=== PATIENT | male | born 1960 | race Caucasian/White ===

== ENCOUNTER 2019-08-27 14:58 | Emergency (ER) | payer BC, SELFPAY ==
--- NOTE | ~2019-08-27 | XR_ITS ---
EXAMINATION: XR chest 2V DATE: 08/27/2019 17:47 INDICATION: Palpitations. Hypertension. TECHNIQUE: PA and lateral views of the chest were obtained. COMPARISON: Chest radiograph dated 01/24/15 FINDINGS: Opacities primarily streaky at the bilateral lower lung zones and favor atelectasis over pneumonia. N o pulmonary edema, pleural effusion or pneumothorax. The cardiomediastinal silhouette is normal. Mild thoracic spondylosis. IMPRESSION: 1. Mild bibasilar atelectasis versus less likely pneumonia. Reviewed, dictated and finalized at location A. NT ADVOCATE
--- NOTE | ~2019-08-27 | CT_ITS ---
EXAMINATION: CT brain wo con DATE: 08/27/2019 19:35 INDICATION: Headache. Hypertension. TECHNIQUE: Computed tomography (CT) of the head was performed without intravenous contrast. Sagittal and coronal reconstructions were performed. The mA was adjusted according to patient size. Iterative reconstruction technique was employed. The dose-length product was 681.00 mGy-cm. COMPARISON: 11/11/2018 FINDINGS: No acute intracranial hemorrhage, acute infarction or abnormal extra axial fluid collection. Very mil d scattered white matter hypoattenuation consistent with chronic small vessel ischemic disease. Ventr icles are normal and symmetric. No mass/mass effect. Mucosal thickening in the bilateral ethmoid sinu ses and right sphenoid sinus. More prominent moderate mucosal thickening in the left maxillary sinus. The cephalad aspect of the right maxillary sinus is completely opacified. The orbits and mastoid air cells are normal. IMPRESSION: 1. No acute intracranial process. 2. Very mild scattered white matter hypoattenuation consistent with chronic small vessel ischemic dis ease. 3. Sinus disease. Reviewed, dictated and finalized at location A. ANICAL DEVELOPMENT ENGINEER IMPRESSION: 1. No acute intracranial process. 2. Very mild scattered white matter hypoattenuation consistent with chronic sma ll vessel ischemic disease. 3. Sinus disease.
[2019-08-27 15:34] VITALS: BP 225/104; PULSE 96; RESP 18; TEMP 36.7; O2SAT 95
[2019-08-27 15:47] VITALS: BP 218/94
--- NOTE | 2019-08-27 15:48 | ECG_ITS ---
Measurements Intervals [place] Rate: 82 P: 4 KS: 220 QRS: -8 QRSD: 95 T: 29 QT: 337 QTc: 396 Interpretive Statements SINUS RHYTHM WITH FIRST DEGREE AV BLOCK INCOMPLETE RIGHT BUNDLE BRANCH BLOCK CONSIDER ANTERIOR INFARCT, AGE INDETERMINATE BASELINE ARTIFACT- I, II, AVR, AVL, V3 ABNORMAL ECG Electronically Signed On 08-27-2019 16:52:46 FORESTRY ENGINEER by Oral Boone D.O.
[2019-08-27 17:22] VITALS: BP 180/94; PULSE 87; RESP 22; O2SAT 96
[2019-08-27] MEDS: hydrALAZINE HCL 20 MG/ML VIAL IV PUSH (17:32)
[2019-08-27 17:36] LABS: Basophils Percent Auto 0.2 % (0.2-1.2); Eosinophils Absolute Auto 0.1 K/mm3 (0-0.3); Eosinophils Percent Auto 0.9 % (0-4.4); Hematocrit 41.6 % (42.0-52.0); Hemoglobin 13.9 g/dL (14.0-18.0); Immature Granulocyte Absolute 0.06 K/mm3 (0.00-0.031); Immature Granulocyte Percent A 0.6 % (0-0.5); Lymphocytes Absolute Auto 1.33 K/mm3 (0.9-3.2); Lymphocytes Percent Auto 12.5 % (18.3-44.2); Mean Corpuscular HGB Conc 33.4 g/dl (32-36); Mean Corpuscular Hemoglobin 28.7 pg (26-34); Mean Corpuscular Volume 85.8 fl (80-100); Mean Platelet Volume 9.3 fl (7.4-10.4); Monocytes Percent Auto 8.9 % (2.6-8.5); Neutrophils Absolute Auto 8.2 K/mm3 (1.3-6.7); Neutrophils Percent Auto 76.9 % (45.5-73.1); Platelet Count Result 323 k/mm3 (150-375); Red Blood Count 4.85 M/mm3 (4.6-6.20); Red Cell Distribution Width 12.6 % (11.5-14.5); White Blood Count 10.7 K/mm3 (4.5-10.0)
--- NOTE | 2019-08-27 17:39 | ED.GENADULT ---
HPI - General Adult General Chief complaint: Unspecified Stated complaint: elevated bp Time Seen by Provider: 08/27/19 17:14 Source: patient Mode of arrival: ambulatory Limitations: no limitations History of Present Illness HPI narrative: This is a 58-year-old male that presents the emergency department for elevated blood pressure. Reports for the last week he has been getting headaches daily. Reports he walked across the room to go take his dog outside and started to feel palpitations today. Reports he took his blood pressure and it was systolic in the 170s-200s. Reports history of hypertension and that he takes multiple medications for this. Reports he has been taking his medicines as prescribed and took his medicine today. Reports bilateral lower extremity edema. Denies fever, vision changes, vomiting, chest pain, or shortness of breath. Related Data Home Medications Medication Instructions Recorded Confirmed atorvastatin 10 mg PO DAILY 08/27/19 budesonide-formoterol [Symbicort] 2 puff INHALATION Q12H 08/27/19 cholecalciferol (vitamin D3) 4,000 unit PO DAILY 08/27/19 [Vitamin D3] diltiazem HCl 240 mg PO DAILY 08/27/19 fenofibrate 160 mg PO DAILY 08/27/19 glimepiride 4 mg PO BID 08/27/19 hydrochlorothiazide 25 mg PO DAILY 08/27/19 insulin degludec [Tresiba U-100 68 unit SUBCUT DAILY 08/27/19 Insulin] losartan 100 mg PO DAILY 08/27/19 metformin 1,000 mg PO BID 08/27/19 methylphenidate HCl 54 mg PO QAM 08/27/19 vgfgesxncmnc-ucu-naor-FA-vit K tablet PO 08/27/19 [Adults Multivitamin] omega 8-slm-vzl-fish oil [[place]-3] cap PO 08/27/19 rivaroxaban [Xarelto] 20 mg PO DAILY 08/27/19 spironolactone 25 mg PO DAILY 08/27/19 Allergies Allergy/AdvReac Type Severity Reaction Status Date / Time atenolol Allergy Severe Rash Verified 08/27/19 17:34 Review of Systems Review of Systems: Narrative: CONSTITUTIONAL: Denies fever EYES: Denies visual changes CARDIOVASCULAR: Reports palpitations and edema. Denies chest pain RESPIRATORY: Denies dyspnea. NEUROLOGIC: Reports headache. Denies numbness, or weakness. All systems reviewed & are unremarkable except as noted in HPI and below PMFSH Past Medical History Medical History (Updated 08/27/19 @ 20:19 by Tuyet Christianson PA-C) History of atrial fibrillation History of diabetes mellitus History of hyperlipidemia History of hypertension Family History Family History (Updated 02/16/16 @ 23:21 by DOCTOR UNKNOWN) Sibling Patient's sister is in good health Family history of diabetes mellitus in first degree relative Family history of coronary artery disease Mother Carcinoma of colon Father Family history of diabetes mellitus in first degree relative Family history of coronary artery disease Other Diabetes mellitus Family history of cardiovascular disease Social History Social History Smoking status: Never smoker Alcohol intake: never Gender identity (if verbalized by the patient): Male Exam Narrative: Exam Narrative: GENERAL: Well-appearing, obese, and in no acute distress. HEAD: Normocephalic, atraumatic. EYES: PERRLA and EOMI. ENT: Nares clear, no rhinorrhea or epistaxis. Mucous membranes moist. Oropharynx without tonsillar hypertrophy exudate or other lesions. Bilateral TMs pearly castro non-bulging NECK: Supple. No adenopathy or masses. No carotid bruits or JVD CHEST: Clear to auscultation. No respiratory distress. No wheezes rales or rhonchi HEART: Regular rate and rhythm. No murmur heard. Normal peripheral pulses. EXTREMITIES: Normal range of motion. 1+ pitting edema to bilateral lower extremities SKIN: Warm, dry, no rash. NEURO: No focal deficits. Alert and oriented x3. Cranial nerves II through XII grossly intact 1+ pitting edema to the bilateral lower extremities PSYCH: Normal mood and affect Course Vital Signs Vital signs: Vital Signs Temperature 98.0 F 08/27/19 15:34 Pulse Rate 96 08/27/19 15:34 Respir
[2019-08-27 17:49] LABS: Blood Urea Nitrogen 14 mg/dL (9-20); Calcium 9.8 mg/dL (8.4-10.2); Carbon Dioxide 25 mmol/L (22-30); Chloride 99 mmol/L (98-107); Estimated CRCL calculation 183 ml/min; Estimated Glomerular Filt Rate > 60; Glucose 165 mg/dL (75-110); Potassium 3.8 mmol/L (3.4-5.0); Sodium 136 mmol/L (137-145)
[2019-08-27 17:50] LABS: INR 1.4; Prothrombin Time 16.8 Seconds (11.1-14.7)
[2019-08-27 17:51] LABS: Partial Thromboplastin Time 36.5 SECONDS (22.3-36.8)
[2019-08-27 18:01] LABS: NT Pro B Type Natriuretic Pept 28 PG/ML (5-100); Troponin I < 0.012 ng/mL (0.000-0.034)
[2019-08-27 19:25] VITALS: BP 152/77; PULSE 89; RESP 14; O2SAT 96
[2019-08-27 19:33] VITALS: PULSE 85
[2019-08-27] MEDS: METOCLOPRAMIDE HCL INJ 10 MG/2 ML VIAL IV PUSH (19:53)
[2019-08-27 21:03] VITALS: BP 157/77; PULSE 82; RESP 17; TEMP 36; O2SAT 94
== END 2019-08-27 21:05 | disposition home or self-care (01) ==
PROVIDERS: Physician Assistant; Emergency Provider Emergency Medicine; PCP Emergency Medicine
DX: I16.0 Hypertensive urgency (principal); I48.91 Unspecified atrial fibrillation; Z79.01 Long term (current) use of anticoagulants; E11.9 Type 2 diabetes mellitus without complications; E78.5 Hyperlipidemia, unspecified; I10 Essential (primary) hypertension; Z79.84 Long term (current) use of oral hypoglycemic drugs; Z79.4 Long term (current) use of insulin; J32.9 Chronic sinusitis, unspecified; R91.8 Other nonspecific abnormal finding of lung field; I45.10 Unspecified right bundle-branch block; R94.31 Abnormal electrocardiogram [ECG] [EKG]
CPT/HCPCS: 36415; 70450; 71046; 80048; 83880; 84484; 85025; 85610; 85730; 96374; 96375; 99284; J0131; J0360; J1200; J2765

== ENCOUNTER → 2020-02-01 10:27 | Outpatient (CLI) | payer BC, SELFPAY ==
--- NOTE | ~2020-02-01 | MR_ITS ---
. EXAMINATION: MR lumbar spine wo con DATE: 02/01/2020 11:07 INDICATION: Low back pain. TECHNIQUE: Magnetic resonance imaging (MRI) of the lumbar spine was performed without intravenous con trast. Sequences included sagittal T2-weighted FSE, sagittal T2-weighted FS FSE, sagittal T1-weighted FSE, and axial T2-weighted FSE. COMPARISON: None FINDINGS: There is 11 degrees levoscoliosis of lumbar spine. Vertebral body heights are normal. There is moderately decreased disc height at L4-L5 and L5-S1. The distal spinal cord signal intensity is n ormal. The conus medullaris is at L1-L2. The following disc levels are specifically discussed: L1-L2: The disc does not extend beyond the endplate margin. There is moderate right and mild left fac et joint osteoarthritis. There is no neural foraminal stenosis. There is no central canal stenosis. L2-L3: The disc does not extend beyond the endplate margin. There is mild bilateral facet joint osteo arthritis. There is no neural foraminal stenosis. There is no central canal stenosis. L3-L4: There is a left foraminal protrusion. There is moderate right and mild left facet joint osteoa rthritis. There is mild bilateral neural foraminal stenosis. There is no central canal stenosis. L4-L5: The disc is bulging. There is mild bilateral facet joint osteoarthritis. There is mild bilater al neural foraminal stenosis. There is mild central canal stenosis. L5-S1: The disc is bulging, eccentric to the left, and has an annular fissure. There is mild bilatera l facet joint osteoarthritis. There is mild right and moderate left neural foraminal stenosis. There is mild central canal stenosis. IMPRESSION: 1. Moderate lumbar spondylosis. 2. Lumbar levoscoliosis. Reviewed, dictated and finalized at location A.
== END ==
PROVIDERS: PCP Emergency Medicine; Visit Provider Emergency Medicine
DX: M47.896 Other spondylosis, lumbar region (principal)
CPT/HCPCS: 72148

== ENCOUNTER 2021-01-17 09:58 | Observation (INO) | payer MEDICARE, SELFPAY ==
[2021-01-17] VITALS (11 sets, daily range): BP systolic 146–175; BP diastolic 70–90; PULSE 110–122; RESP 14–33; TEMP 36.7–39.2; O2SAT 96–100; BMI 44.9
--- NOTE | ~2021-01-17 | CT_ITS ---
EXAMINATION: CT abdomen pelvis w con DATE: 01/17/2021 12:46 INDICATION: Hematuria. Pyelonephritis. TECHNIQUE: Computed tomography (CT) of the abdomen and pelvis was performed with 100 mL Omnipaque 350 intravenous contrast. Automated exposure control and iterative reconstruction technique were employe d. The dose-length product was 1666.54 mGy-cm. COMPARISON: CT abdomen and pelvis 05/03/2011 FINDINGS: The visualized portions of the lung bases demonstrate mild atelectasis. No pleural effusion . The heart size is normal. No pericardial effusion. There is a lap band in expected position. The li andrea, gallbladder, spleen, pancreas, adrenal glands, and left kidney are normal. There is a 10 mm cyst in right kidney. The prostate is moderately enlarged. The bladder is not well distended. There are n o dilated loops of bowel. The appendix is normal. There are no pathologically enlarged lymph nodes. T here is no free intraperitoneal fluid. There is lumbar levoscoliosis and severe spondylosis. IMPRESSION: 1. Moderately enlarged prostate. Reviewed, dictated and finalized at location A.
[2021-01-17 11:02] LABS: Add Urine Microscopic? YES; Appearance Urine Turbid (Clear); Bilirubin Urine Negative (Negative); Blood Urine 3+ (Negative); Color Urine Red (Yellow); Glucose Urine UA 1+ mg/dL (Negative); Ketones Urine Trace mg/dL (Negative); Leukocyte Esterase Ur 1+ LEU/UL (Negative); Nitrate Urine Negative (Negative); Protein Urine 3+ mg/dL (Negative); RBC Urine >75 /hpf (0-2); Specific Grav Ur 1.019 (1.001-1.035); Urobilinogen Urine Negative mg/dL (<2.0); WBC Urine 51-75 /hpf
[2021-01-17 11:14] LABS: Basophils Percent Auto 0.2 % (0.2-1.2); Eosinophils Percent Auto 0.1 % (0-4.4); Hematocrit 38.7 % (42.0-52.0); Hemoglobin 12.9 g/dL (14.0-18.0); Immature Granulocyte Percent A 0.5 % (0-0.5); Lymphocytes Absolute Auto 0.58 K/mm3 (0.9-3.2); Mean Corpuscular HGB Conc 33.3 g/dl (32-36); Mean Platelet Volume 8.9 fl (7.4-10.4); Monocytes Absolute Auto 1.5 K/mm3 (0.1-0.6); Monocytes Percent Auto 7.9 % (2.6-8.5); Neutrophils Absolute Auto 17.1 K/mm3 (1.3-6.7); Neutrophils Percent Auto 88.3 % (45.5-73.1); Platelet Count Result 252 k/mm3 (150-375); Red Cell Distribution Width 12.3 % (11.5-14.5); White Blood Count 19.4 K/mm3 (4.5-10.0)
[2021-01-17 11:27] LABS: INR 1.1; Prothrombin Time 14.4 Seconds (11.1-14.7)
[2021-01-17 11:28] LABS: Partial Thromboplastin Time 31.8 SECONDS (22.3-36.8)
[2021-01-17 11:36] LABS: Anion Gap 12 mmol/L (8-16); Blood Urea Nitrogen 16 mg/dL (9-20); Calcium 9.9 mg/dL (8.4-10.2); Carbon Dioxide 23 mmol/L (22-30); Chloride 101 mmol/L (98-107); Estimated CRCL calculation 103 ml/min; Estimated Glomerular Filt Rate > 60; Glucose 138 mg/dL (75-110); Potassium 4.2 mmol/L (3.4-5.0); Sodium 136 mmol/L (137-145)
--- NOTE | 2021-01-17 12:53 | ED.MALEGU ---
HPI - Male Genitourinary General Chief complaint: Urogenital-Male Stated complaint: blood clots in urine Time Seen by Provider: 01/17/21 11:30 History of Present Illness HPI Narrative: Patient is a 60-year-old male who presents ER with hematuria. Reports he started passing blood clots earlier this morning and has been having dysuria since early in the evening. He reports yesterday started having fevers and chills and fatigue. Has not had symptoms like this previously. No history of kidney stones. Denies flank pain. Patient does take Xarelto. Related Data Home Medications Medication Instructions Recorded Confirmed atorvastatin 10 mg PO DAILY 08/27/19 01/17/21 budesonide-formoterol [Symbicort] 2 puff INHALATION Q12H 08/27/19 01/17/21 cholecalciferol (vitamin D3) 4,000 unit PO DAILY 08/27/19 01/17/21 [Vitamin D3] diltiazem HCl 240 mg PO DAILY 08/27/19 01/17/21 fenofibrate 160 mg PO DAILY 08/27/19 01/17/21 glimepiride 4 mg PO DAILY 08/27/19 01/17/21 hydrochlorothiazide 25 mg PO DAILY 08/27/19 01/17/21 insulin degludec [Tresiba U-100 90 unit SUBCUT DAILY 08/27/19 01/17/21 Insulin] losartan 100 mg PO DAILY 08/27/19 01/17/21 metformin 1,000 mg PO BID 08/27/19 01/17/21 methylphenidate HCl 54 mg PO QAM 08/27/19 01/17/21 nbbnntjatuom-yhs-bayw-FA-vit K 1 tablet PO DAILY 08/27/19 01/17/21 [Adults Multivitamin] omega 9-tyh-qdu-fish oil [[place]-3] 1 cap PO DAILY 08/27/19 01/17/21 rivaroxaban [Xarelto] 20 mg PO DAILY 08/27/19 01/17/21 glimepiride 2 mg PO HS 01/17/21 01/17/21 spironolactone 50 mg PO DAILY 01/17/21 01/17/21 Allergies Allergy/AdvReac Type Severity Reaction Status Date / Time atenolol Allergy Severe Rash Verified 01/17/21 15:06 empagliflozin Allergy Nausea Verified 01/17/21 15:06 [From Jardiance] Review of Systems Review of Systems: All systems reviewed & are unremarkable except as noted in HPI and below Constitutional: Constitutional: Denies chills, Denies fever(s) and Denies weakness ENT: Denies nasal congestion and Denies sore throat Cardiovascular: Cardiovascular: Denies chest pain and Denies radiating jaw, neck or arm pain Gastrointestinal: Gastrointestinal: Denies abdominal pain, Denies nausea and Denies vomiting Genitourinary: Genitourinary: Reports hematuria, Denies oliguria, Reports dysuria and Reports urinary frequency [facility] Past Medical History Medical History (Updated 01/17/21 @ 18:11 by Bright Bird MD) Chronic anemia Deep vein thrombosis of left lower extremity (06/2014) Hyperlipidemia Hypertension Infection of skin due to methicillin resistant Staphylococcus aureus (MRSA) (04/2010) Right groin, requiring incision and drainage. Insulin dependent type 2 diabetes mellitus Narcolepsy Obstructive sleep apnea on CPAP Paroxysmal atrial fibrillation Surgical History Surgical History (Updated 01/17/21 @ 16:03 by Kary Elena PA-C) History of arthroscopy of right knee (01/2011) History of laparoscopic adjustable gastric banding (05/2014) History of partial knee replacement Right. Status post left foot surgery Left foot reconstruction. Family History Family History Sibling Family history of diabetes mellitus in first degree relative Family history of coronary artery disease Mother Carcinoma of colon Father Family history of diabetes mellitus in first degree relative Family history of coronary artery disease Other Diabetes mellitus Family history of cardiovascular disease Patient's sister is in good health Social History Social History (Updated 01/17/21 @ 16:05 by Kary Elena PA-C) Social History: The patient lives in [place] with his . Nonsmoker. No alcohol or illicit substance abuse. He designates his , Deb, as his surrogate decision maker. Code status: Full code. Exam Narrative: Exam Narrative: GENERAL: Well-appearing, morbidly obese, and in no acute distres
--- NOTE | 2021-01-17 15:03 | ADMGEN ---
This patient, Marko Guan, was admitted to 3 [facility] Surg Room 312-01 @ 1500. Patient/family oriented to hospital policies and general routines including ID bracelet, bed and alarms, visiting hours, pain management, procedures, bathroom and other care routines, personal items, smoking policy, room service/diet, and visiting hours. Information on how to activate the Rapid Response Team has been discussed. Patient/Family are encouraged to report perceived risks to care and to ask questions if they do not understand what they are told or what they should do.
[2021-01-17] MEDS: SODIUM CHLORIDE 0.9% IV 1,000 ML 125 ML IV CONT ×2 (15:30→22:56)
--- NOTE | 2021-01-17 16:06 | ECG_ITS ---
Measurements Intervals [place] Rate: 119 P: 18 HI: 199 QRS: -19 QRSD: 103 T: 22 QT: 303 QTc: 428 Interpretive Statements SINUS TACHYCARDIA LOW QRS VOLTAGE IN PRECORDIAL LEADS INCOMPLETE RIGHT BUNDLE BRANCH BLOCK BASELINE ARTIFACT- I, II, III, AVR, AVF, V2 ABNORMAL ECG Electronically Signed On 01-17-2021 18:08:28 CDT by Oral Boone D.O.
[2021-01-17] MEDS: ACETAMINOPHEN 325 MG TABLET 650 MG PO ×2 (16:08→20:00)
--- NOTE | 2021-01-17 16:30 | PM.IMHP ---
H&P: HPI History of Present Illness Date/Time: 01/17/21 16:30 Chief Complaint: Dysuria and hematuria. Narrative: This is a 60-year-old male with paroxysmal atrial fibrillation on long-term anticoagulation, type 2 diabetes mellitus, hypertension, hyperlipidemia, and sleep apnea on CPAP presented to the emergency department earlier today via private vehicle from home for evaluation of dysuria and hematuria. Yesterday afternoon he began having hot and cold sweats as well as a mild headache, nausea, and generalized malaise. Around 03:00 he was wakened with the urge to go to urinate and he reports experiencing dysuria at that time. He still had dysuria when he got up this morning and he then began passing small blood clots. He has never had similar symptoms in the past and to his knowledge he does not have any issues with his prostate however it does seem as though he has of slow urine stream and at times it takes him awhile to empty his bladder. He meets evidence for sepsis and it looks like he may very well have urinary tract infection. CT of the abdomen and pelvis showed no acute findings but did note a moderately enlarged prostate. He has no previous history of urinary tract infection, prostatitis, or kidney stones. He denies sinus congestion, rhinorrhea, otalgia, odynophagia, shortness breath, cough, vomiting, and diarrhea. No chest pain, palpitations, or feelings of racing heart however he was tachycardic earlier with his fever. Review of Systems Review of Systems: Narrative: Twelve systems were reviewed with pertinent positives and negatives as per HPI. He was vaccinated for COVID in September 2020. Recently traveled to [facility] but he denies sick contacts. Weight has remained stable. No history of malignancy. States compliance with his CPAP. No issues with his skin currently, specifically no wounds or bites. He believes his diabetes is pretty well controlled with a recent hemoglobin A1c of just over 7%. Fasting glucose is usually around 160. No blurry vision, polydipsia, or polyuria. Except as documented, all other systems were reviewed and are negative. [facility] Past Medical History Medical History (Updated 01/17/21 @ 18:11 by Bright Bird MD) Chronic anemia Deep vein thrombosis of left lower extremity (06/2014) Hyperlipidemia Hypertension Infection of skin due to methicillin resistant Staphylococcus aureus (MRSA) (04/2010) Right groin, requiring incision and drainage. Insulin dependent type 2 diabetes mellitus Narcolepsy Obstructive sleep apnea on CPAP Paroxysmal atrial fibrillation Surgical History Surgical History (Updated 01/17/21 @ 16:03 by Kary Elena PA-C) History of arthroscopy of right knee (01/2011) History of laparoscopic adjustable gastric banding (05/2014) History of partial knee replacement Right. Status post left foot surgery Left foot reconstruction. Family History Family History Sibling Family history of diabetes mellitus in first degree relative Family history of coronary artery disease Mother Carcinoma of colon Father Family history of diabetes mellitus in first degree relative Family history of coronary artery disease Other Diabetes mellitus Family history of cardiovascular disease Patient's sister is in good health Social History Social History (Updated 01/17/21 @ 21:34 by Kary Elena PA-C) Social History: The patient lives in [place] with his . They have 2 grown children. 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 Nonsmoker. No alcohol or illicit substance abuse. He designates his , Deb, as his surrogate decision maker. Code status: Full code. Meds Home Medications and Allergies Home Medications Medication Instructions Recorded Confirmed Type atorvastatin 10 mg PO DAILY 08/27/19 01/17/21 History budesonide-formoterol [Symbicort] 2 puff INHALATION Q12H 08/27/19 01/17/21 History cholecalciferol
[2021-01-17 16:55] LABS: Glucose Point of Care 167 mg/dl (65-105)
[2021-01-17 17:41] LABS: Lactic Acid Reflex 1.2 mmol/L (0.7-2.1)
[2021-01-17 17:42] LABS: Alanine Aminotransferase 21 U/L (4-50); Albumin Level 4.1 g/dL (3.5-5.1); Alkaline Phosphatase 64 U/L (38-126); Aspartate Amino Transferase 25 U/L (17-59); Bilirubin,Total 0.8 mg/dL (0.2-1.3); Magnesium 1.5 mg/dL (1.6-2.3)
[2021-01-17 17:48] LABS: Hemoglobin A1C 9.4 % (<5.7)
[2021-01-17 18:05] LABS: CRP 18.6 mg/dL (<1.0)
[2021-01-17 20:27] LABS: Glucose Point of Care 214 mg/dl (65-105)
[2021-01-17] MEDS: MAGNESIUM SULF 2 GM/WATER 50ML 2 GM/50 ML BAG IVPB (22:56)
[2021-01-18] VITALS (7 sets, daily range): BP systolic 137–149; BP diastolic 65–76; PULSE 91–102; RESP 16–20; TEMP 35.9–38.1; O2SAT 96–100
--- NOTE | 2021-01-18 00:59 | PCRCNOTE ---
to bring patient's home cpap unit
[2021-01-18 06:14] LABS: Alanine Aminotransferase 16 U/L (4-50); Albumin Level 3.5 g/dL (3.5-5.1); Alkaline Phosphatase 62 U/L (38-126); Anion Gap 7 mmol/L (8-16); Aspartate Amino Transferase 19 U/L (17-59); Bilirubin,Total 0.6 mg/dL (0.2-1.3); Blood Urea Nitrogen 14 mg/dL (9-20); Calcium 8.8 mg/dL (8.4-10.2); Carbon Dioxide 24 mmol/L (22-30); Chloride 104 mmol/L (98-107); Estimated CRCL calculation 107 ml/min; Estimated Glomerular Filt Rate > 60; Glucose 156 mg/dL (75-110); Potassium 3.9 mmol/L (3.4-5.0); Sodium 135 mmol/L (137-145)
[2021-01-18 06:27] LABS: Hematocrit 33.3 % (42.0-52.0); Hemoglobin 11.1 g/dL (14.0-18.0); Mean Corpuscular HGB Conc 33.3 g/dl (32-36); Mean Corpuscular Hemoglobin 29.8 pg (26-34); Mean Corpuscular Volume 89.3 fl (80-100); Mean Platelet Volume 9.4 fl (7.4-10.4); Platelet Count Result 217 k/mm3 (150-375); Red Blood Count 3.73 M/mm3 (4.6-6.20); Red Cell Distribution Width 12.1 % (11.5-14.5); White Blood Count 19.5 K/mm3 (4.5-10.0)
--- NOTE | 2021-01-18 07:15 | WPDURCON ---
Assessment and Plan Assessment and plan (1) Acute prostatitis: Code(s): N41.0 - Acute prostatitis Status: Acute Assessment and Plan: Broad-spectrum antibiotics pending completion of cultures. Given his absolute lack of antecedent voiding symptoms prior to this episode, I would not commit him to long-term 5 alpha reductase inhibitors (ie. finasteride, dutasteride). Urology Consult Note HPI Date Seen: 01/18/21 Requesting Physician: Awais Morejon MD Primary Care Provider: Troy Menjivar, MD Consult Narrative Narrative: Marko Guan is a 60 year old male, without prior significant urological history and without significant voiding symptoms, presents with signs and symptoms typical for acute prostatitis. Patient has multiple comorbidities including hypertension obesity diabetes mellitus sleep apnea, etc. noted yesterday acute onset dysuria and hematuria. He denies significant fevers or chills or sense of urinary retention. CT imaging shows prostatic enlargement without a distended bladder or hydronephrosis. Review of Systems Cardiovascular: Cardiovascular: Denies chest pain, Denies lightheadedness, Denies palpitations and Denies dyspnea Respiratory: Respiratory: Denies dyspnea Gastrointestinal: Gastrointestinal: Denies diarrhea, Denies nausea and Denies vomiting Genitourinary: Genitourinary: Reports hematuria and Reports dysuria Endocrine: Endocrine: Denies palpitations PMFSH Past Medical History Medical History Chronic anemia Deep vein thrombosis of left lower extremity (06/2014) Hyperlipidemia Hypertension Infection of skin due to methicillin resistant Staphylococcus aureus (MRSA) (04/2010) Right groin, requiring incision and drainage. Insulin dependent type 2 diabetes mellitus Narcolepsy Obstructive sleep apnea on CPAP Paroxysmal atrial fibrillation Surgical History Surgical History History of arthroscopy of right knee (01/2011) History of laparoscopic adjustable gastric banding (05/2014) History of partial knee replacement Right. Status post left foot surgery Left foot reconstruction. Family History Family History Sibling Family history of diabetes mellitus in first degree relative Family history of coronary artery disease Mother Carcinoma of colon Father Family history of diabetes mellitus in first degree relative Family history of coronary artery disease Other Diabetes mellitus Family history of cardiovascular disease Patient's sister is in good health Social History Social History Social History: The patient lives in [place] with his . They have 2 grown children. 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 Nonsmoker. No alcohol or illicit substance abuse. He designates his , Deb, as his surrogate decision maker. Code status: Full code. Meds Home Medications and Allergies Home Medications Medication Instructions Recorded Confirmed Type atorvastatin 10 mg PO DAILY 08/27/19 01/17/21 History budesonide-formoterol [Symbicort] 2 puff INHALATION Q12H 08/27/19 01/17/21 History cholecalciferol (vitamin D3) 4,000 unit PO DAILY 08/27/19 01/17/21 History [Vitamin D3] diltiazem HCl 240 mg PO DAILY 08/27/19 01/17/21 History fenofibrate 160 mg PO DAILY 08/27/19 01/17/21 History glimepiride 4 mg PO DAILY 08/27/19 01/17/21 History hydrochlorothiazide 25 mg PO DAILY 08/27/19 01/17/21 History insulin degludec [Tresiba U-100 90 unit SUBCUT DAILY 08/27/19 01/17/21 History Insulin] losartan 100 mg PO DAILY 08/27/19 01/17/21 History metformin 1,000 mg PO BID 08/27/19 01/17/21 History methylphenidate HCl 54 mg PO QAM 08/27/19 01/17/21 History hqzhomlwggqp-mtp-haht-FA-vit K 1 tablet PO DAILY 08/27/19 01/17/21 History [Adults Multivitamin]
[2021-01-18 08:02] LABS: Glucose Point of Care 154 mg/dl (65-105)
[2021-01-18] MEDS: SODIUM CHLORIDE 0.9% IV 1,000 ML 125 ML IV CONT ×2 (08:51→18:26)
[2021-01-18] MEDS: hydroCHLOROthiazide 25 MG TABLET PO (08:52)
[2021-01-18] MEDS: MULTIVITAMINS /C LUTEIN (CENTRUM SILVER) TABLET *BKC 1 TAB PO (08:52)
[2021-01-18] MEDS: CHOLECALCIFEROL 1,000 UNITS TABLET 4000 UNITS PO (08:52)
[2021-01-18] MEDS: FENOFIBRATE 160 MG TABLET PO (08:52)
[2021-01-18] MEDS: LOSARTAN POTASSIUM 100 MG TABLET PO (08:52)
[2021-01-18] MEDS: SPIRONOLACTONE 50 MG TABLET PO (08:52)
[2021-01-18] MEDS: ATORVASTATIN 10 MG TABLET PO (08:52)
[2021-01-18] MEDS: OMEGA 3 POLYUNSAT FATTY ACIDS 1 GM CAP PO (08:55)
[2021-01-18] MEDS: INSULIN GLARGINE (*BKC) 100 UNITS/ML 90 UNITS SUB-Q (08:56)
[2021-01-18] MEDS: ACETAMINOPHEN 325 MG TABLET 650 MG PO ×2 (11:45→20:26)
[2021-01-18 12:21] LABS: Glucose Point of Care 185 mg/dl (65-105)
--- NOTE | 2021-01-18 12:25 | PM.IMPN ---
Progress Note: A&P Assessment and Plan (1) Acute prostatitis: Code(s): N41.0 - Acute prostatitis Status: Acute Assessment and Plan: Given history of sudden onset and enlarged prostate on CT with no symptoms prior to this episode - suggestive of acute prostatitis. Appreciate urology input. Continue IV rocephin (day 2) while awaiting urine culture and sensitivities. (2) Hematuria: Qualifiers: Hematuria type: gross Qualified Code(s): R31.0 - Gross hematuria Code(s): R31.9 - Hematuria, unspecified Status: Acute Assessment and Plan: Suspect secondary to above. Appreciate urology input. Xarelto held. If no hematuria tomorrow will consider resuming Xarelto. (3) Sepsis: Qualifiers: Sepsis type: sepsis due to unspecified organism Sepsis acute organ dysfunction status: without acute organ dysfunction Qualified Code(s): A41.9 - Sepsis, unspecified organism Code(s): A41.9 - Sepsis, unspecified organism Status: Acute Assessment and Plan: Evident by fever, tachycardia, leukocytosis. Source is above. Continue abx as above with urine and blood cultures pending. Monitor vital signs, urine output. (4) Chronic anemia: Code(s): D64.9 - Anemia, unspecified Status: Chronic Assessment and Plan: Hgb 11.1; monitor. Consider transfusion if Hgb < 7. (5) Paroxysmal atrial fibrillation: Code(s): I48.0 - Paroxysmal atrial fibrillation Status: Chronic Assessment and Plan: Sinus tachycardia now. Continue his home diltiazem. Xarelto held due to hematuria. (6) Hypertension: Qualifiers: Hypertension type: unspecified Qualified Code(s): I10 - Essential (primary) hypertension Code(s): I10 - Essential (primary) hypertension Status: Chronic Assessment and Plan: BPs elevated on arrival now improved after resuming his home medications. Continue home HCTZ, cardizem, losartan, spironolactone. Monitor BP and adjust treatment as needed. 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 Blood sugars are stable. His home glimepiride and metformin are held. Continue insulin regimen. Continue to monitor with accu-cheks and adjust treatment as needed, cover with SSI. (8) Obstructive sleep apnea on CPAP: Code(s): G47.33 - Obstructive sleep apnea (adult) (pediatric); Z99.89 - Dependence on other enabling machines and devices Status: Chronic Assessment and Plan: Using his CPAP from home. Subjective Date/time seen: 01/18/21 1130 Interval history: Mr. Guan is a pleasant 60yo M admitted for acute prostatitis. He feels a little improved today. No further hematuria. He is still having dysuria with most voids but not all. Denies nausea, vomiting. Denies chest pain, palpitations, or shortness of breath. Urine in the urinal at beside is yellow without blood clots. Review of Systems Review of Systems: All systems reviewed & are unremarkable except as noted in HPI and below Exam Narrative: Exam Narrative: General: Male resting comfortably sitting up in bed in no acute distress. HEENT: Normocephalic, EOMI, oral mucosa moist. Cardiovascular: Rate and rhythm are regular. Respiratory: Lungs clear to auscultation bilaterally. Respirations even and non-labored. Tolerating room air. Abdomen: Soft, non-tender, non-distended, bowel sounds present. Extremities: Peripheral pulses intact.
[2021-01-18 17:32] LABS: Glucose Point of Care 129 mg/dl (65-105)
[2021-01-18 23:20] LABS: Glucose Point of Care 204 mg/dl (65-105)
[2021-01-19] MEDS: SODIUM CHLORIDE 0.9% IV 1,000 ML 125 ML IV CONT (04:44)
[2021-01-19 06:00] VITALS: BP 133/63; PULSE 92; RESP 18; TEMP 36.3; O2SAT 97
[2021-01-19 06:12] LABS: Basophils Percent Auto 0.2 % (0.2-1.2); Eosinophils Absolute Auto 0.1 K/mm3 (0-0.3); Eosinophils Percent Auto 0.6 % (0-4.4); Hematocrit 32.1 % (42.0-52.0); Hemoglobin 10.8 g/dL (14.0-18.0); Immature Granulocyte Absolute 0.06 K/mm3 (0.00-0.031); Immature Granulocyte Percent A 0.5 % (0-0.5); Lymphocytes Absolute Auto 0.96 K/mm3 (0.9-3.2); Lymphocytes Percent Auto 7.6 % (18.3-44.2); Mean Corpuscular HGB Conc 33.6 g/dl (32-36); Mean Corpuscular Hemoglobin 29.9 pg (26-34); Mean Corpuscular Volume 88.9 fl (80-100); Mean Platelet Volume 9.3 fl (7.4-10.4); Monocytes Percent Auto 8.1 % (2.6-8.5); Neutrophils Absolute Auto 10.5 K/mm3 (1.3-6.7); Platelet Count Result 224 k/mm3 (150-375); Red Blood Count 3.61 M/mm3 (4.6-6.20); Red Cell Distribution Width 11.9 % (11.5-14.5); White Blood Count 12.6 K/mm3 (4.5-10.0)
[2021-01-19 06:27] LABS: Anion Gap 6 mmol/L (8-16); Blood Urea Nitrogen 12 mg/dL (9-20); Calcium 8.5 mg/dL (8.4-10.2); Carbon Dioxide 25 mmol/L (22-30); Chloride 106 mmol/L (98-107); Estimated CRCL calculation 117 ml/min; Estimated Glomerular Filt Rate > 60; Glucose 130 mg/dL (75-110); Potassium 3.7 mmol/L (3.4-5.0); Sodium 137 mmol/L (137-145)
[2021-01-19 07:08] LABS: Glucose Point of Care 141 mg/dl (65-105)
--- NOTE | 2021-01-19 07:13 | WPDUROPN2 ---
Progress Note: A&P Assessment and Plan (1) Acute prostatitis: Code(s): N41.0 - Acute prostatitis Status: Acute Assessment and Plan: Feeling much better over last 24-hours -> anxious for discharge. Urine culture: e. coli / await sensitivities. Blood cultures: no growth so far. Home on culture-directed abx. x2 weeks. No plans for BPH meds at this time. Subjective Subjective Date/Time Seen: 01/19/21 07:13 Feeling much better today - dysuria much improved. Review of Systems Cardiovascular: Cardiovascular: Denies chest pain, Denies lightheadedness, Denies palpitations and Denies dyspnea Respiratory: Respiratory: Denies dyspnea Gastrointestinal: Gastrointestinal: Denies diarrhea, Denies nausea and Denies vomiting Genitourinary: Genitourinary: Denies hematuria and Denies dysuria Endocrine: Endocrine: Denies palpitations Exam Const: General: no acute distress Resp: Effort & Inspection: normal respiratory effort GI: Inspection: non-distended GI Palp: No abdominal tenderness and No Guarding due to palpation present (GI) Auscultation: normal bowel sounds Objective Data Vital Signs Vital Signs: Vital Signs - 24 hr 01/18/21 12:31 01/18/21 14:00 01/18/21 20:00 Temperature 96.6 F L 98.9 F Pulse Rate 91 Respiratory Rate 16 Blood Pressure 137/67 Pulse Oximetry 96 96 01/18/21 20:26 01/18/21 20:43 01/18/21 22:25 Temperature 100.5 F H 100.5 F H Pulse Rate 102 H 98 Respiratory Rate 18 Blood Pressure 149/65 H Pulse Oximetry 96 96 01/19/21 06:00 Temperature 97.4 F L Pulse Rate 92 Respiratory Rate 18 Blood Pressure 133/63 Pulse Oximetry 97 Intake/Output Intake/Output: Intake & Output 01/16/21 01/17/21 01/18/21 01/19/21 23:59 23:59 23:59 23:59 Intake Total 1490 4010 1000 Output Total 200 1675 200 Balance 1290 2335 800 Meds/Results Medications: Active Medications Generic Name Dose Route Start Last Admin Trade Name Freq PRN Reason Stop Dose Admin Acetaminophen 650 mg 01/17/21 13:21 01/18/21 20:26 Acetaminophen 325 Mg Tablet PO 650 mg Q4H PRN Administration Mild Pain (1-3) or Fever Hydrocodone Bitart/Acetaminophen 1 tab 01/17/21 13:21 Hydrocodone/Acetaminophen (*Crx) 5-325 Mg Tablet PO Q4H PRN Pain Rated 4-6 Atorvastatin Calcium 10 mg 01/18/21 09:00 01/18/21 08:52 Atorvastatin 10 Mg Tablet PO 10 mg DAILY KISHORE Administration Budesonide/Formoterol Fumarate 2 puff 01/17/21 21:45 01/18/21 20:44 Budesonide/Form 160-4.5 Mcg (*Sp) INHALATION 2 puff Q12HRT KISHORE Administration Dextrose 12.5 gm 01/17/21 16:07 Dextrose 50% 25 Gm/50 Ml Syringe IV PUSH PRN PRN Hypoglycemia Protocol Diltiazem HCl 240 mg 01/18/21 09:00 01/18/21 08:53 Diltiazem Hcl Cd 240 Mg Cap.Er.24h PO 240 mg DAILY KISHORE Administration Fenofibrate 160 mg 01/18/21 09:00 01/18/21 08:52 Fenofibrate 160 Mg Tablet PO 160 mg DAILY KISHORE Administration Fish Oil 1 gm 01/18/21 09:00 01/18/21 08:55 Hugo 3 Polyunsat Fatty Acids 1 Gm Cap PO 1 gm QAM KISHORE Administration Glucagon 1 mg 01/17/21 16:07 Glucagon For Inj 1 Mg Vial IM PRN PRN Hypoglycemia Protocol Glucose 15 gm 01/17/21 16:07 Glucose Oral Gel 15 Gm Of Glucse In 37.5 Gm Tube PO PRN PRN Hypoglycemia Protocol Hydrochlorothiazide 25 mg 01/18/21 09:00 01/18/21 08:52 Hydrochlorothiazide 25 Mg Tablet PO 25 mg DAILY KISHORE Administration Ceftriaxone Sodium/Dextrose 1 gm in 50 mls @ 100 mls/hr 01/18/21 12:00 01/18/21 11:47 Rocephin 1 Gm/D5w 50 Ml IVPB 100 mls/hr Q24H KISHORE Administration Sodium Chloride 1,000 mls @ 125 mls/hr 01/17/21 13:25 01/19/21 04:44 Normal Saline Iv IV CONT 125 mls/hr .Q8H KISHORE Administration Dextrose 1,000 mls @ 100 mls/hr 01/17/21 16:07 Dextrose 5% 1,000 Ml IVPB PRN PRN Hypoglycemia Protocol Insulin Aspart 3 - 6 units 01/17
[2021-01-19] MEDS: INSULIN GLARGINE (*BKC) 100 UNITS/ML 90 UNITS SUB-Q (08:00)
[2021-01-19] MEDS: ACETAMINOPHEN 325 MG TABLET 650 MG PO (08:05)
[2021-01-19] MEDS: CHOLECALCIFEROL 1,000 UNITS TABLET 4000 UNITS PO (08:07)
[2021-01-19] MEDS: LOSARTAN POTASSIUM 100 MG TABLET PO (08:07)
[2021-01-19] MEDS: hydroCHLOROthiazide 25 MG TABLET PO (08:07)
[2021-01-19] MEDS: FENOFIBRATE 160 MG TABLET PO (08:08)
[2021-01-19] MEDS: SPIRONOLACTONE 50 MG TABLET PO (08:08)
[2021-01-19] MEDS: ATORVASTATIN 10 MG TABLET PO (08:08)
[2021-01-19] MEDS: MULTIVITAMINS /C LUTEIN (CENTRUM SILVER) TABLET *BKC 1 TAB PO (08:08)
[2021-01-19] MEDS: OMEGA 3 POLYUNSAT FATTY ACIDS 1 GM CAP PO (08:08)
[2021-01-19 11:35] LABS: Glucose Point of Care 172 mg/dl (65-105)
--- NOTE | 2021-01-19 11:43 | PM.DS ---
DS: Admitting Diagnosis Admitting Diagnosis Admitting Diagnosis: Hematuria DS: Discharge Diagnosis Discharge Diagnosis (1) Acute prostatitis: Code(s): N41.0 - Acute prostatitis Status: Acute Assessment and Plan: Date of Admission 01/17/21 Date of Discharge 01/19/21 Mr. Guan is a pleasant 60yo M with history of paroxysmal atrial fibrillation, hypertension, insulin-dependent type 2 diabetes mellitus, ARMAND compliant with CPAP therapy who presented to the ED for evaluation of blood clots in his urine and sudden onset of dysuria. CT abdomen/pelvis demonstrated a moderately enlarged prostate. He was started on empiric IV antibiotic therapy with Rocephin. Urology was consulted and he was evaluated by Dr. Azul. His history of sudden onset and enlarged prostate on imaging with no symptoms prior to this episode is suspected he may have acute prostatitis. Urology recommended waiting for the urine culture and tailoring antibiotics to the sensitivity report. Urine culture grew > 100,000 pansensitive E coli. Patient has hematuria and dysuria resolved. He received 3 doses of IV ceftriaxone and was discharged with oral Augmentin to complete the course. He takes Xarelto for his AFib which was briefly held while hospitalized due to his hematuria. He was instructed to resume his Xarelto this evening since the hematuria is resolved. He was hemodynamically stable for discharge on 01/19/2021 with instructions follow-up with PCP and monitor for any further symptoms. (2) Hematuria: Qualifiers: Hematuria type: gross Qualified Code(s): R31.0 - Gross hematuria Code(s): R31.9 - Hematuria, unspecified Status: Acute Assessment and Plan: Suspect secondary to above. Appreciate urology input. Xarelto held due to hematuria, resume at discharge. (3) Sepsis: Qualifiers: Sepsis type: sepsis due to unspecified organism Sepsis acute organ dysfunction status: without acute organ dysfunction Qualified Code(s): A41.9 - Sepsis, unspecified organism Code(s): A41.9 - Sepsis, unspecified organism Status: Acute Assessment and Plan: Evident by fever, tachycardia, leukocytosis. Source is above. Antibiotic course as outlined above. Urine culture with E coli. Blood cultures are pending with no growth to date on day of discharge and will be followed to final. (4) Chronic anemia: Code(s): D64.9 - Anemia, unspecified Status: Chronic Assessment and Plan: Hgb low but stable. No acute issues. (5) Paroxysmal atrial fibrillation: Code(s): I48.0 - Paroxysmal atrial fibrillation Status: Chronic Assessment and Plan: Sinus tachycardia now. His home diltiazem was resumed. Xarelto was held as mentioned, resumed at discharge. (6) Hypertension: Qualifiers: Hypertension type: unspecified Qualified Code(s): I10 - Essential (primary) hypertension Code(s): I10 - Essential (primary) hypertension Status: Chronic Assessment and Plan: BPs elevated on arrival now improved after resuming his home medications. Continue home HCTZ, cardizem, losartan, spironolactone. (7) Insulin dependent type 2 diabetes mellitus: Code(s): E11.9 - Type 2 diabetes mellitus without complications; Z79.4 - group home (current) use of insulin Status: Chronic Assessment and Plan: Hgb A1c 9.4%. Blood sugars are stable. His home glimepiride and metformin were held but resumed at discharge. Continue insulin regimen. (8) Obstructive sleep apnea on CPAP: Code(s): G47.33 - Obstructive sleep apnea (adult) (pediatric); Z99.89 - Dependence on other e
--- NOTE | 2021-01-24 10:36 | PC.NURSE ---
Blood cx are negative.
== END 2021-01-19 12:11 | disposition home or self-care (01) ==
LOC: ANHED 11:58 → ANH3MEDSUR 13:51
PROVIDERS: Physician Assistant; Admitting Provider Internal Medicine; Emergency Provider Emergency Medicine; PCP Emergency Medicine; Visit Provider Internal Medicine
DX: N41.0 Acute prostatitis (principal); A41.9 Sepsis, unspecified organism; I48.0 Paroxysmal atrial fibrillation; E11.9 Type 2 diabetes mellitus without complications; I10 Essential (primary) hypertension; G47.33 Obstructive sleep apnea (adult) (pediatric); R31.0 Gross hematuria; D64.9 Anemia, unspecified; Z99.89 Dependence on other enabling machines and devices; Z79.01 Long term (current) use of anticoagulants; Z79.4 Long term (current) use of insulin
CPT/HCPCS: 36415; 74177; 80048; 80053; 80076; 81001; 82948; 83036; 83605; 83735; 84443; 85025; 85027; 85610; 85730; 86140; 87040; 87077; 87086; 87186; 93005; 96361; 96365; 96375; 99285; A9270; G0378; J0696; J1815; J3475; J7030; Q9967